=== PATIENT | female | born 1950 | race Caucasian/White ===

== ENCOUNTER 2017-08-24 11:22 | Day surgery (SDC) | payer OTHER, MEDICARE ==
[2017-08-22 11:24] VITALS: BMI 22.4
--- NOTE | 2017-08-24 12:03 | HP ---
Satellite [facility] - Chief Complaint Chief Complaint: right knee pain/fx - Past Medical History Allergies/Adverse Reactions: Allergies Allergy/AdvReac Type Severity Reaction Status Date / Time No Known Allergies Allergy Unverified 07/01/12 16:07 - Current Medications Current Medications: Home Medications Medication Instructions Recorded Aspirin [Aspir 81] 81 mg PO DAILY 07/01/12 Cholecalciferol (Vitamin D3) 2,000 unit PO DAILY tablet 09/22/14 [Vitamin D3] Oxycodone HCl/Acetaminophen 1 - 2 tab PO Q6H #30 tab MDD 8 08/24/17 [Percocet 5-325 mg Tablet -] Satellite Physical Exam - Physical Examination Vital Signs: Vital Signs Period Temp Pulse Resp BP Sys/Mora Pulse Ox Last 24 Hr 97.9 F 72 18 132/59 98 General Appearance: Well Nourished, Well Developed, Alert & Oriented x3 ENT: Clear Lung: Normal air movement Heart: Regular rate & rhythm Extremities: Other (right knee- + swelling, + ttp, decr rom, nvi xrays show displaced patella fx) Neurological: Intact, Alert, Oriented Satellite Impression/Plan - Impression/Plan Impression: right displaced patella fx Operative Procedure: right patella orif Date to be Performed: 08/24/17
[2017-08-24] MEDS ORDERED: DEXAMETHASONE SOD PHOSPHATE/PF 10 MG/ML SDV ONE (12:10)
[2017-08-24] MEDS ORDERED: BUPIVACAINE HCL/PF (5 MG/ML) 30 ML VIAL IJ ONE (12:10)
[2017-08-24] MEDS ORDERED: MIDAZOLAM HCL 2 MG/2 ML SINGLE DOSE VIAL ONE (12:10)
[2017-08-24] MEDS ORDERED: ROCURONIUM BROMIDE 50 MG/5 ML VIAL ONE (12:55)
[2017-08-24] MEDS ORDERED: PROPOFOL 20 ML ONE (12:55)
[2017-08-24] MEDS ORDERED: LIDOCAINE HCL 2% 100 MG/5 ML DISP.SYRIN ONE (12:59)
[2017-08-24] MEDS ORDERED: ceFAZolin SODIUM 1 GM VIAL ONE (13:05)
[2017-08-24] MEDS ORDERED: ONDANSETRON 4 MG/2 ML VIAL ONE ×2 (13:23→14:30)
[2017-08-24] MEDS ORDERED: DEXAMETHASONE SOD PHOSPHATE 4 MG/1 ML VIAL ONE (13:23)
[2017-08-24] MEDS ORDERED: ONDANSETRON 4 MG/2 ML VIAL IVPUSH PRN (13:39)
[2017-08-24] MEDS ORDERED: oxyCODONE HCL 5 MG TABLET PO PRN (13:40)
[2017-08-24] MEDS ORDERED: LACTATED RINGERS SOLUTION 1,000 ML IV SCH (13:45)
[2017-08-24] MEDS ORDERED: GLYCOPYRROLATE 0.2 MG/1 ML VIAL ONE (14:03)
[2017-08-24] MEDS ORDERED: NEOSTIGMINE METHYLSULFATE 0.5 MG/ML - 10 ML MDV ONE (14:03)
--- NOTE | 2017-08-24 14:11 | OP ---
Operative Note - Note: Operative Date: 08/24/17 Pre-Operative Diagnosis: right patella fracture Operation: ORIF RIGHT PATELLA Post-Operative Diagnosis: Same as Pre-op Surgeon: Vinay Nolan Safe Technician: Darrian Chacon Anesthesia: General Operative Report Dictated: Yes
[2017-08-24] MEDS ORDERED: CEFAZOLIN 1 GM in DEXTROSE 5%-WATER - 50 ML IVPB ONE (15:00)
[2017-08-24] MEDS: ACETAMINOPHEN 325 MG TABLET (FP) PO SCH ×2 (15:25→22:14)
[2017-08-24] MEDS ORDERED: ACETAMINOPHEN 325 MG TABLET (FP) ONE (15:27)
[2017-08-24] MEDS ORDERED: oxyCODONE HCL 5 MG TABLET ONE (16:48)
[2017-08-24] MEDS ORDERED: CEFAZOLIN 1 GM/D5W 1 GM/50 ML BAG ONE (17:58)
[2017-08-24] MEDS: oxyCODONE HCL 5 MG TABLET PO PRN (20:10)
[2017-08-24] MEDS: oxyCODONE HCL 10 MG SUSTAINED ACTING TABLET PO SCH (22:14)
[2017-08-25] MEDS: ACETAMINOPHEN 325 MG TABLET (FP) PO SCH ×3 (01:00→11:13)
[2017-08-25] MEDS: oxyCODONE HCL 5 MG TABLET PO PRN (06:12)
[2017-08-25 06:29] VITALS: PULSE 71
[2017-08-25] MEDS ORDERED: CLOPIDOGREL BISULFATE 75 MG TABLET (FP) PO SCH (10:00)
[2017-08-25] MEDS ORDERED: RAMIPRIL 5 MG CAPSULE (FP) PO SCH (10:00)
[2017-08-25] MEDS ORDERED: ASPIRIN COATED 81 MG TABLET.EC PO SCH (10:00)
[2017-08-25 10:07] VITALS: BP 100/45; TEMP 98.4
[2017-08-25] MEDS: oxyCODONE HCL 10 MG SUSTAINED ACTING TABLET PO SCH (10:08)
--- NOTE | 2017-08-25 11:32 | OP ---
DATE OF OPERATION: 08/24/2017 PREOPERATIVE DIAGNOSIS: Displaced right patellar fracture. POSTOPERATIVE DIAGNOSIS: Displaced right patellar fracture. OPERATION PERFORMED: Open reduction internal fixation of the right patellar fracture. SURGICAL ATTENDING: Vinay Nolan MD PEDIATRIC OCCUPATIONAL THERAPIST: SHADE Collado ANESTHESIA: Regional and general. CLOSURE: Two 4.0 cancellous screws from [place] with a 1 AO cerclage wire and No. 1 Vicryl for fracture and retinaculum, 2-0 for paratenon and subcutaneous, and 3-0 Monocryl subcuticular with skin glue for skin. ESTIMATED BLOOD LOSS: 50 mL. COMPLICATIONS: None. CONDITION: To recovery room in stable condition. DESCRIPTION OF OPERATIVE PROCEDURE: Patient was taken to the operating room on August 24, 2017. General anesthesia and regional anesthesia was administered by the anesthesiologist. IV Kefzol was administered prophylactically prior to the case. The right lower extremity was prepped and draped in the usual sterile fashion. An 8-cm longitudinal incision centered over the patella was incised. Hemostasis was achieved with Bovie cautery. Sharp dissection was carried to the level of the patella, was visualized performed the procedure. The fracture was developed between the proximal and distal pole. The proximal fragment was 1 large piece. The distal fragment consisted of 1 large piece, but 2 other fragments both medially and laterally, and the central portion was the main portion. Curettes and irrigation were used to free up the fracture. A provisional reduction was held with reduction forceps. Two guidewires from the cannulated screw set were drilled from inferior to superior through the main body of the fracture distally, spanning out slightly proximally. Proper placement of these wires confirmed the AP and lateral planes through the image intensifier. More importantly, we ensured that the articular cartilage, of which there was a large step-off preoperatively, had been restored to be congruent to palpation. Also, underneath it post-fixation revealed good articular surface congruity. Two 4.0 cancellous screws were screwed achieving good reduction. An AO wire was placed through the cannulas of each of the screws in a figure-of-8 formation and tensioned. Then, the wire was bent over. The medial and lateral fragments were then repaired as well using No. 1 Vicryl sutures through small drill holes in the proximal fragment achieving good reduction there, as well. X-rays on AP and lateral planes revealed excellent position of the hardware with anatomic hinduism of the articular surface. Prior to compressing of the fracture and repairing the fracture, Tess putty was used to fill any voids. Retinaculum was repaired both medially and laterally with No. 1 Vicryl. The paratenon was closed over it as best we could over the wires, so they would not be as palpable. Range of motion post-fixation was able to go from 0 to 90 with no undue tension on the repair. It was irrigated with copious amounts of irrigation. The subcutaneous was closed using 2-0 Vicryl and 3-0 Monocryl subcuticular for skin with skin glue was applied. Patient was awakened from anesthesia and transferred to recovery in stable condition. No complications. Estimated blood loss 50 mL. Patient was placed in a knee immobilizer to allow current extension. Patricia [id number]
[2017-08-25] MEDS ORDERED: ROSUVASTATIN CA 10 MG TABLET (FP) PO SCH (22:00)
== END 2017-08-25 11:50 | disposition home or self-care (01) ==
LOC: FASU 11:22 → FM/S 18:15 → FASU 08-25 11:50
PROVIDERS: ATTEND Orthopaedic Surgery
PROC: 0QSD04Z Reposition Right Patella with Internal Fixation Device, Open Approach (ICD-10-PCS; principal; 2017-08-24 13:15)
DX: S82.091A Other fracture of right patella, initial encounter for closed fracture (principal); X58.XXXA Exposure to other specified factors, initial encounter; Y93.9 Activity, unspecified; Y92.9 Unspecified place or not applicable
CPT/HCPCS: 94760